=== PATIENT | female | born 1985 | race Two or more races ===

== ENCOUNTER 2019-05-11 16:49 | Emergency (ER) | payer MEDICAID ==
[~2019-05-11] VITALS: Ht 152.4 cm; Wt 66.5 kg
[2019-05-11 16:54] VITALS: BP 126/75
[2019-05-11] MEDS ORDERED: HYDROmorphone 2 MG/ML, 1ML IVPush PRN (17:30)
[2019-05-11] MEDS ORDERED: SODIUM CHLORIDE FLUSH 10ML SYR IVF ONE (17:30)
[2019-05-11] MEDS ORDERED: DIPHENHYDRAMINE 25 MG CAPSULE ONE (17:30)
[2019-05-11] MEDS ORDERED: ONDANSETRON 2MG/ML, 2ML ONE (17:30)
[2019-05-11] MEDS ORDERED: ONDANSETRON 2MG/ML, 2ML IVPush ONE (17:30)
[2019-05-11] MEDS ORDERED: HYDROmorphone 1 MG/ML, 1ML VIAL ONE (17:30)
[2019-05-11] MEDS ORDERED: DIPHENHYDRAMINE 50 MG CAPSULE PO STA (17:34)
--- NOTE | 2019-05-11 17:38 | NUR ---
THIS IS A 34 YEAR OLD FEMALE WHO C/O OF ABD PAIN. PT STATES SHE IS 8 WEEKS . PT STATES SHE TAKES IV BENEDRYL WITH DILAUDID, DISCUSSED WITH PA, ORDERS FOR PO ONLY. PT STATES SHE IS A HARD STICK, NEED FOR ULTRASOUND
--- NOTE | 2019-05-11 17:41 | NUR ---
PER CHARLEEN WATERMAN WHO WAS GOING TO START PIV. PT STATES SHE HAD A EJ TODAY AT [facility]. PER ANGELA CRAFT HOLD UNTIL SHE RECEIVED MEDICAL RECORDS FROM [facility]
--- NOTE | 2019-05-11 17:54 | NUR ---
ANGELA PAC SPOKE TO PATIENT, NO IV, PT VERBALIZED UNDERSTANDING
[2019-05-11] MEDS ORDERED: HYDROmorphone 1 MG/ML, 1ML INJ IM ONE (18:00)
[2019-05-11] MEDS ORDERED: ONDANSETRON ODT 4 MG ONE (18:12)
--- NOTE | 2019-05-11 18:19 | NUR ---
LAB UNABLE TO DRAW PATIENT, SPOKE WITH ANGELA WELSH TO CANCEL. MEDICATED WITH PO ZOFRAN AND IM DILAUDID FOR PAIN, PT TOLERATED WELL.
[2019-05-11] MEDS ORDERED: ONDANSETRON ODT 4 MG PO ONE (18:30)
--- NOTE | 2019-05-11 18:46 | NUR ---
REPORT TO EMELYN VILLASEÑOR, PLAN OF CARE DISCUSSED
--- NOTE | 2019-05-11 18:57 | NUR ---
POC DISCUSSED BETWEEN PT AND ELSIE MILLER. PT SIGNED AMA PAPERWORK. PT TBDC'ED
== END 2019-05-11 19:06 | disposition left against medical advice (07) ==
LOC: ED 19:00
DX: O20.0 Threatened abortion (principal); Z3A.08 8 weeks gestation of pregnancy; Z85.79 Personal history of other malignant neoplasms of lymphoid, hematopoietic and related tissues
CPT/HCPCS: 96372; 99283; J1170; Q0162

== ENCOUNTER 2019-12-29 14:33 | Emergency (ER) | payer SELFPAY ==
[~2019-12-29] VITALS: Ht 152.4 cm; Wt 62.3 kg
[2019-12-29 14:42] VITALS: BP 123/85
[2019-12-29] MEDS ORDERED: HYDROmorphone 1 MG/ML, 1ML INJ IM STA (15:10)
[2019-12-29] MEDS ORDERED: HYDROmorphone 1 MG/ML, 1ML INJ ONE (15:20)
[2019-12-29] MEDS ORDERED: DIPHENHYDRAMINE 50 MG/ML, 1ML ONE (15:20)
[2019-12-29] MEDS ORDERED: DIPHENHYDRAMINE 50 MG/ML, 1ML IM ONE (15:30)
--- NOTE | 2019-12-29 15:30 | NUR ---
ON ASMIN OF ORDERED MEDS PT REPORTS THAT SHE FELT THE DOSAGE WAS NOT RNOUGH TO RESOLVE HER PAIN
--- NOTE | 2019-12-29 15:50 | NUR ---
REQUESTING MORE PAIN MEDS REPORTED TO EREP ERP TO SEE PT
--- NOTE | 2019-12-29 16:15 | NUR ---
TO CHECK ON PT SHE WAS NOT IN THE ROOM GOWN ON THE BED AND ALL PERSONAL BELONGINGS GONE
== END 2019-12-29 16:27 | disposition left against medical advice (07) ==
LOC: ED 16:00
DX: G43.C0 Periodic headache syndromes in child or adult, not intractable (principal); R56.9 Unspecified convulsions; R11.2 Nausea with vomiting, unspecified; R00.0 Tachycardia, unspecified
CPT/HCPCS: 93005; 96372; 99284; J1170; J1200